=== PATIENT | female | born 1950 | race Caucasian/White ===

== ENCOUNTER → 2025-04-21 11:18 | Outpatient (REF) | payer MEDICARE, SELFPAY ==
--- NOTE | 2025-04-21 11:18 | S_PTH ---
PATIENT: Marian Acosta LOC: [facility] U#:[id number] AGE/SX: 75/F ROOM: RE04/21/[address]: Rainer Torres MD : [id number] BED: DIS: SPEC #: [id number] RECD: 04/21/25 12:42 STATUS: BROOKS RENoe #: [id number] MARIA: 04/21/25 11:[address]: Rainer Torres DEPT: [facility] Surgical RECD BY: Phillip Philip ENTERED: 04/21/25 12:43 SP TYPE: Surgical OTHR DR: Hugo SalazarMD Tissues: A - Nevus B - Nevus Procedures: Hematoxylin and Eosin Stain Gross and Microscopic Level 4
--- OUTSIDE RECORDS SUMMARY | 2025-04-21 12:04 | XMS_ITS | Encounter Summary ---
Author Organization [facility] Address [address] [place] [address] Phone Care Team Providers Care Hand Counter Name Role Phone Hugo Salazar MD Primary Care Provider [phone] Shawn Stein DO Unavailable [phone] Severiano Cordero DPM Unavailable [phone] Jw Lira MD Unavailable [phone] Lio Tay MD Unavailable Marcos Correia MD Unavailable Katie Hair APRN, DERMATOLOGIST AND DERMATOPATHOLOGIST Unavailable [phone] Michelle Encarnacion MD Unavailable [phone] Jeronimo Cabral MD Unavailable [phone] Reason for Referral * Radiology Services (Routine) - Closed Specialty Diagnoses / Procedures Referred By Nicolás marcelo Referred To Contact Radiology Diagnoses Pre-op testing Procedures EKG 12 LEAD Lio Tay MD [address] [place] [address] Phone: tel: fax: Referral ID Status Reason Start Date Expiration Date Visits Re quested Visits Authorized [id number] Closed 04/29/2020 1 1 * Radiology Services (Routine) - Closed Specialty Diagnoses / Procedures Referred By Nicolás marcelo Referred To Contact Radiology Diagnoses Pre-op testing Procedures XR CHEST 2 VIEWS Lio Tay MD [address] [place] [address] Phone: tel: fax: Referral ID Status Reason Start Date Expiration Date Visits Re quested Visits Authorized [id number] Closed 04/29/2020 1 1 Encounter Details Date Type Department Care Team (Latest Contact Info) Description 04/29/2020 Transcribe Orders [facility] Preop/Pacu II [address] [place] [id number] Lio Tay MD [address] [place] [address] Pre-op testing (Primary Dx) Social History Tobacco Use Types Packs/Day Years Used Date Smoking Tobacco: Never Smokeless Tobacco: Never Alcohol Use Standard Drinks/Week Comments No 0 (1 standard drink = 0.6 oz pur e alcohol) PHQ-2 Answer Date Recorded PHQ-2 Score 0 04/02/2019 Sexually Active Control Partners Comments Never Comments No Sex and Gender Information Value Date Recorded Sex Assigned at Female 11/13/2023 3:38 PM CDT Legal Sex Female 9:49 PM CDT Gender Identity Female 11/13/2023 3:38 PM CDT Sexual Orientation Straight 11/13/2023 3: 38 PM CDT Occupation Industry Job Start Date Job End Date 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 No / Unsure 04/30/2020 11:31 AM CDT documented as of this encounter Plan of Treatment Upcoming Encounters Date Type Department Care Team (Late st Contact Info) Description 07/15/2025 9:00 AM MUSEUM EXHIBIT TECHNICIAN Office Visit [facility] - Primary Care - [address] [place] [id number] Hugo Salazar MD [address] [place] [address] 09/25/2025 10:00 AM MUSEUM EXHIBIT TECHNICIAN Office Visit [facility] - Pulmonology & Sleep Medicine [facility] [address] [place] [address] Marcos Correia MD [address] [place] [address] documented as of this encounter Results * SARS-COV-2 BY PCR (05/09/2020 12:52 PM CDT) SARSCOV2 NOT DETECTED (Referenc e Range for this test is Not Detected) [facility] THERMOF[facility] FAST DX 05/10/2020 9:16 PM CDT [facility] NASOPHARYNGEAL STRUCTURE / Unknown Non-Phlebotomy Collection / Unknown 05/09/2020 12:52 PM CDT 05/09/2020 12:52 PM CDT Narrative [facility] - 05/10/2020 9:16 PM CDT Authorized Fact Sheets about this test for providers and patients are available at: https://www.fda.gov/medical-devices/vnwdqpyjd-iekcqdppqx-qeiaudt-devices/emergen cy-us e-authorizations us Lio Tay MD MICROBIOLOGY - GENERAL ORDERABLE S Final Result [facility] [address] [place] [address], [place] * XR CHEST 2 VIEWS (05/03/2020 8:37 AM CDT) Anatomical Region Laterality Modality Chest N/A Digital Radiogra phy 05/03/2020 10:4 1 AM CDT Impressions 05/03/2020 10:43 AM CDT IMPRESSION: No acute cardiopulmonary abnormality. Narrative 05/03/2020 10:43 AM CDT EXAM DESCRIPTION: XR CHEST 2 VIEWS REASON FOR STUDY: Hypertension TECHNIQUE: Frontal and lateral radiographic views of the chest acquired. COMPARISON: 05-24-18 FINDINGS: LUNGS/PLEURA: No focal consolidation or pneumothorax. No pleural effusion. HEART/MEDIASTINUM: Heart size is normal. Normal mediastinal and hilar contours. HARDWARE/LINES/TUBES: None. BONES: No acute findings. OTHER: No other significant finding. THIS IS AN ELECTRONICALLY VERIFIED FINAL REPORT 05/03/2020 10:41 AM - Electronically signed by Chu Clemens M.D. NC: NC Report ID: [id number] Reading Location: [place] [address] Procedure Note Chu Clemens MD - 05/03/2020 EXAM DESCRIPTION: XR CHEST 2 VIEWS REASON FOR STUDY: Hypertension TECHNIQUE: Frontal and lateral radiographic views of the chest acquired. COMPARISON: 05-24-18 FINDINGS: LUNGS/PLEURA: No focal consolidation or pneumothorax. No pleural effusion. HEART/MEDIASTINUM: Heart size is normal. Normal mediastinal and hilar contours. HARDWARE/LINES/TUBES: None. BONES: No acute findings. OTHER: No other significant finding. THIS IS AN ELECTRONICALLY VERIFIED FINAL REPORT 05/03/2020 10:41 AM - Electronically signed by Chu Clemens M.D. NC: NC Report ID: [id number] Reading Location: [place] [address] IMPRESSION: No acute cardiopulmonary abnormality. Lio Tay MD IMG DIAGNOSTIC ORDERABLES Final Result * EKG 12 LEAD (05/03/2020 8:18 AM CDT) Ventricular Rate BPM EXTERNAL EKG Atrial Rate BPM EXTERNAL EKG P-R Interval 166 ms EXTERNAL EKG QRS Duration 96 ms EXTERNAL EKG Q-T Duration 398 ms EXTERNAL EKG QTC CALCULATION 408 ms EXTERNAL EKG P [place] 80 degrees EXTERNAL EKG R [place] -6 degrees EXTERNAL EKG T [place] 60 degrees EXTERNAL EKG 05/03/2020 8:18 AM CDT Impressions EXTERNAL EKG - 05/03/2020 10:38 AM CDT Sinus rhythm rSr'(V1) - probable normal variant Poor R wave progression Comparison Summary: Significant changes Summary: Abnormal ECG Compared with:11/25/2015 9:24 AM; 08/26/2015 6:20 PM; 08/16/2015 9:03 AM Sinus rhythm resumed Confirmed by Blaire Hernandez [id number] on 05/03/2020 10:38:35 AM Narrative Procedure Note Ayse Rudd MD - 05/03/2020 IMPRESSION: Sinus rhythm rSr'(V1) - probable normal variant Poor R wave progression Comparison Summary: Significant changes Summary: Abnormal ECG Compared with:11/25/2015 9:24 AM; 08/26/2015 6:20 PM; 08/16/2015 9:03 AM Sinus rhythm resumed Confirmed by Blaire Hernandez [id number] on 05/03/2020 10:38:35 AM Lio Tay MD IMG ECG ORDERABLES Final Result EXTERNAL EKG * TYPE AND SCREEN(REPEAT) (05/03/2020 8:08 AM CDT) Pathologist [facility] ABO TYPING A 05/03/2020 11:22 AM CDT [facility] BLOOD BANK RH Positive 05/03/2020 11:22 AM CDT [facility] BLOOD BANK ABSC Negative 05/03/2020 11:22 AM CDT [facility] BLOOD BANK Blood Venipuncture / Unknown 05/03/2020 8:08 AM CDT 05/03/2020 8:36 AM CDT Lio Tay MD BLOOD BANK ORDERABLES Edited Res ult - Final [facility] BLOOD BANK [address] [facility] [place] [address] * URIC ACID (BLOOD ASSAY) (05/03/2020 8:08 AM CDT) URIC ACID 5.6 2.4 - 5.7 mg/dL 05/03/2020 9:28 AM CDT [facility] Blood Venipuncture / Unknown 05/03/2020 8:08 AM CDT 05/03/2020 8:37 AM CDT us Lio Tay MD CHEMISTRY ORDERABLES Final Resul t [facility] [address] [place] [address] * ANTINUCLEAR ANTIBODY (MARYCRUZ), TITER IF POS (05/03/2020 8:08 AM CDT) MARYCRUZ SCREEN Negative Negative titer 05/04/2020 11:35 AM CDT [facility] Comment: Antinuclear autoantibodies not detected by IFA at a 1:80 screening dilution of HEp-2 cells. Blood Venipuncture / Unknown 05/03/2020 8:08 AM CDT 05/03/2020 8:37 AM CDT us Lio Tay MD IMMUNOLOGY ORDERABLES Final Resu lt Performing Organization Address City/[facility]/ZIP Co de Phone Number [facility] [address] [place] [address], * RHEUMATOID FACTOR (RFQT) QUANT (05/03/2020 8:08 AM CDT) RHEUMATOID FACTOR QT <=10 <14 IU/mL 05/03/2020 9:29 AM CDT [facility] Blood Venipuncture / Unknown 05/03/2020 8:08 AM CDT 05/03/2020 8:37 AM CDT Narrative [facility] - 05/03/2020 9:29 AM CDT RHEUMATOID FACTORS CAN BE FOUND IN RHEUMATOID ARTHRITIS, SYPHILIS, VIRAL INFECTIONS, LEPROSY, CHRONIC LIVER DISEASE, NEOPLASMS, AND OTHER INFLAMMATORY CONDITIONS. RF PREVALENCE ALSO INCREASES WITH AGE. THUS A POSITIVE TEST IS NOT RESTRICTED TO RA. CONVERSELY, A NEGATIVE TEST DOES NOT RULE OUT RA, RHEUMATOID FACTORS ARE NOT DETECTABLE IN 10% OF ADULTS WITH THE DISEASE. us Lio Tay MD CHEMISTRY ORDERABLES Final Resul t Performing Organization Address City/[facility] Co de Phone Number [facility] [address] [place] [address] * (ABNORMAL) C-REACTIVE PROTEIN (CRP) QUANT (05/03/2020 8:08 AM CDT) C-REACTIVE PROTEIN 0.58(H) <0.50 mg/dL 05/03/2020 9:29 AM CDT [facility] Blood Venipuncture / Unknown 05/03/2020 8:08 AM CDT 05/03/2020 8:37 AM CDT us Lio Tay MD CHEMISTRY ORDERABLES Final Resul t Performing Organization Address [facility] de Phone Number [facility] [address] [place] [address] * ERYTHROCYTE SEDIMENTATION RATE (ESR) (05/03/2020 8:08 AM CDT) ESR (SED RATE, ERYTHROCYTE SEDIMENTATION RATE) 7 <30 mm/h 05/03/2020 8:58 AM CDT [facility] Comment:Patients presenting with abnormally high or low RBC counts and other hemoglobinopathies could affect the results for the erythrocyte sedimentation rate (ESR). Results should be clinically correlated. Blood Venipuncture / Unknown 05/03/2020 8:08 AM CDT 05/03/2020 8:37 AM CDT Lio Tay MD HEMATOLOGY ORDERABLES Final Resu lt Performing Organization Address [facility] Co de Phone Number [facility] [address] [place] [address] * (ABNORMAL) CMP (COMPREHENSIVE METABOLIC PANEL) (05/03/2020 8:08 AM CDT) SODIUM 140 136 - 144 mmol/L 05/03/2020 9:29 AM CDT [facility] POTASSIUM 4.3 3.5 - 5.1 mmol/L 05/03/2020 9:29 AM CDT [facility] CHLORIDE 102 100 - 110 mmol/L 05/03/2020 9:29 AM T [facility] CO2, VENOUS 29 22 - 32 mmol/L 05/03/2020 9:29 AM CDT [facility] ANION GAP 13.3 8.0 - 20.0 mmol/L 05/03/2020 9:29 AM CDT [facility] GLUCOSE 111(H) 70 - 99 mg/dL 05/03/2020 9:29 AM CDT [facility] BUN 18 8 - 23 mg/dL 05/03/2020 9:29 AM [facility] CREATININE, BLOOD 0.93 0.60 - 1.10 mg/dL 05/03/2020 9:29 AM [facility] BUN/CREATININE RATIO 19 12 - 20 ratio 05/03/2020 9:29 AM CDT [facility] TOTAL PROTEIN 7.1 6.0 - 8.3 g/dL 05/03/2020 9:29 AM [facility] ALBUMIN 4.4 3.5 - 5.2 g/dL 05/03/2020 9:29 AM [facility] Comment: The colormetric methods used for the determination of Albumin may lead to falsely elevated test results in patients suffering from renal failure or insufficiency due to interference with other proteins. A/G RATIO 1.6 1.0 - 2.0 05/03/2020 9:29 AM CDT [facility] CALCIUM 9.7 8.9 - 10.3 mg/dL 05/03/2020 9:29 AM CDT [facility] T BILI 0.3 <=1.2 mg/dL 05/03/2020 9:29 AM CDT [facility] SGOT (AST) 16 <=32 U/L 05/03/2020 9:29 AM T [facility] SGPT (ALT) 11 <=33 U/L 05/03/2020 9:29 AM CDT [facility] ALKALINE PHOSPHATASE 98 35 - 105 U/L 05/03/2020 9:29 AM CDT [facility] GFR, EST. NONAFRICAN 60 >=60 05/03/2020 9:29 AM CDT [facility] GFR, EST. >60 >=60 020 9:29 AM CDT [facility] Comment: Creatinine Clearance is the preferred criteria for selecting drug dose adjustments in renally impaired patients. The GFR is provided as additional pertinent clinical information. GFR is reported in mL/min/1.73 sq m. Blood Venipuncture / Unknown 05/03/2020 8:08 AM CDT 05/03/2020 8:37 AM CDT us Lio Tay MD CHEMISTRY ORDERABLES Final Resul t [facility] [address] [place] [address] documented in this encounter Visit Diagnoses Diagnosis Pre-op testing- Primary Preoperative examination, unspecified Pre-op testing Preoperative examination, unspecified Pre-op testing Preoperative examination, unspecified documented in this encounter Additional Health Concerns Assessment Noted Time PHQ-9 Depression Total Score: 0 10/18/19 19 9:00 AM CDT documented as of this encounter Care Teams Hand Counter Relationship Specialty Start Date End Date Hugo Salazar MD [address] [place] [address] PCP - General Internal Medicine 04/11/15 Shawn Stein DO [address] [place] [address] Gastroenterology 10/06/15 12/16/23 Severiano Cordero DPM [address] [place] [address] Consulting Physician Podiatry 07/05/16 Jw Lira MD [address] [place] [address] Consulting Physician Urology 02/25/18 12/16/23 Lio Tay MD [address] [place] [id number] Consulting Physician Orthopaedic Sports Medicine 08/27/19 Marcos Correia MD [address] [place] [id number] Consulting Physician Pulmonary Disease 10/19/21 Katie Hair APRN, DERMATOLOGIST AND DERMATOPATHOLOGIST [address] [facility] [address] [place] [address] Nurse Practitioner Cardiology 10/29/23 02/03/25 Michelle Encarnacion MD [address] [facility] [address] [place] [address] Consulting Physician Dermatology 12/17/23 Jeronimo Cabral MD [address] [place] [address] Consulting Physician Medical Oncology 11/06/23 documented as of this encounter
--- OUTSIDE RECORDS SUMMARY | 2025-04-21 12:04 | XMS_ITS | Clinical Summary ---
Author Organization [facility] Address [address] [address] Phone Care Team Providers Care Tool Straightener Name Role Phone Hugo Salazar MD Primary Care Provider [phone] Severiano Cordero DPM Unavailable [phone] Lio Tay MD Unavailable Marcos Correia MD Unavailable Michelle Encarnacion MD Unavailable [phone] Jeronimo Cabral MD Unavailable [phone] Allergies Active Allergy Reactions Criticality Noted Date Comments Ciprofloxacin Nausea 07/24/2017 Medications cyclobenzaprine (FLEXERIL) 5 MG Tablet Take 5 mg by mouth 3 times daily as needed for Muscle spasms. Active Cholecalciferol (VITAMIN D3) 2000 UNIT Capsule take 1 capsule by oral route 2 times every day 7 Active saccharomyces boulardii (FLORASTOR) 250 MG Capsule Take 250 mg by mouth 2 times daily. Active meloxicam (MOBIC) 15 MG Tablet TAKE 1 TABLET BY MOUTH TWICE DAILY WITH FOOD 2 Active fluticasone (FLONASE) 50 MCG/ACT SuspensionIndicatio ns:Perennial allergic rhinitis 1-2 Sprays by Nasal route daily. Use in each nostril as directed. 18.2 mL 1 2 Active Vuity 1.25 % Solution INSTILL 1 DROP INTO BOTH EYES EVERY DAY 2 Active lansoprazole (PREVACID) 30 MG CAPSULE DELAYED RELEASE TAKE 1 CAPSULE BY MOUTH DAILY 90 Capsule 3 5 Active FLUoxetine (PROzac) 20 MG CapsuleIndications: Anxiety and depression Take 1 Capsule by mouth daily. 90 Capsule 1 5 Active losartan (COZAAR) 25 MG Tablet TAKE 1 TABLET BY MOUTH DAILY 90 Tablet 1 5 Active rosuvastatin (CRESTOR) 20 MG TabletIndications:M ixed hyperlipidemia TAKE 1 TABLET BY MOUTH DAILY 90 Tablet 1 5 Active dilTIAZem (CARDIZEM CD) 240 MG CAPSULE SR 24 HRIndications:Hyper tension, essential,SVT (supraventricular tachycardia) TAKE 1 CAPSULE BY MOUTH DAILY 90 Capsule 5 Active Active Problems Problem Noted Date Diagnosed Date Benign paroxysmal positional vertigo 01/17/2024 Bilateral tinnitus 01/17/2024 Sensorineural hearing loss 01/17/2024 Chronic cough 11/03/2022 Gastroesophageal reflux disease without esophagi tis 11/01/2020 Non morbid obesity 09/18/2019 ARISTEO on CPAP 07/16/2018 Lumbar spinal stenosis 06/09/2016 Varicose veins 10/13/2015 Iron deficiency 09/08/2015 SVT (supraventricular tachycardia) 09/06/2015 Irritable bowel syndrome with diarrhea Mixed hyperlipidemia Anxiety and depression Hypertension, essential Resolved Problems Problem Noted Date Diagnosed Date Resolved Date Basal cell carcinoma, face 11/06/2023 0 12/30/2024 Skin lesion of scalp 11/06/2023 024 SVT (supraventricular tachycardia) 10/19/2023 12/17/2023 Primary osteoarthritis of left knee 05/11/2021 12/30/2024 Primary osteoarthritis of right knee 05/12/2020 12/30/2024 Bunion of great toe of left foot 06/14/2016 02/05/2017 Hammer toe of second toe of left foot 06/14/2016 02/05/2017 Tear of left rotator cuff 12/08/2015 Anemia 09/08/2015 02/05/2017 Leukocytosis 09/08/2015 02/05/2017 Sepsis due to other etiology (<HCC>) 09/06/2015 02/05/2017 Nausea & vomiting 09/06/2015 02/05/2017 Diarrhea 09/06/2015 02/05/2017 Encounters Date Type Department Care Team Description 03/27/2025 10:45 AM CDT Office Visit [facility] - Pulmonology & Sleep Medicine - [place] [address] [place] [address] Marcos Correia MD ARISTEO on CPAP (Primary Dx); Hypertension, essential; Non morbid obesity Discharge Disposition: Discharged to home or Selfcare 03/27/2025 Travel 02/26/2025 Refill [facility] - Primary Care - [place] [address] [place] [phone] Hugo Salazar MD Medication Refill 02/10/2025 Refill [facility] - Internal Medicine - [place] [address] [place] [phone] Hugo Salazar MD Medication Refill 02/03/2025 Refill [facility] - [place] [address] [place] [phone] Hugo Salazar MD Medication Refill from Last 3 Months Immunizations Immunization Administration Dates Next Due COVID-19, MRNA, LNP-S, BIVAL ENT , PFIZER, 30 MCG/0.3 ML (12+ Y/O) 06/13/2022 Covid-19, Mrna, Lnp-s, Pf, 3 0 Mcg/0.3 Ml Dose (Pfizer) 10/23/2020,09/30/2020 Covid-19, Mrna, Lnp-s, Pf, Temo-sucrose, 30 Mcg/0.3 Ml (Pfizer) 07/01/2024,06/14/2023 Influenza Vaccine greater than 3 yrs 04/29/2020, 05/30/2013 Influenza Vaccine, Quadrivalent, PF 04/30,04/28/2019,05/17/2018,06/05 Influenza, High-dose, Quadrivalent 05/27/2022 Influenza, Quadrivalent, Adjuvanted 06/14/2023 Influenza, Trivalent, Adjuvanted, PF 07/01/2024 PUR FLU 3+ YRS PRES FREE QUAD IM 07/05/2015 07/05/2016 PUR FLU HIGH DOSE (FLUZONE) 07/05/2016 PUR PCV-13 07/05/2016 Pneumococcal Vaccine Adult - 23 Valent 08/23/2017 TDAP Vaccine 04/10/2021,05/02/2010 Zoster Vaccine Recombinant 02/06/2022,11/29/2021 Zoster Vaccine, live 12/11/2012 Family History Medical History Relation Name Comments Heart Disease Brother Alzheimer's Disease Father Cancer Father lymph node Heart Disease Father Hypertension Father Prostate Cancer Father Breast Cancer Maternal Grandmother Diabetes Maternal Grandmother Breast Cancer Mother Heart Disease Mother Hypertension Mother Stroke Mother Relation Name Status Comments Brother Alive Father Alive Maternal Grandmother Mother Social History Tobacco Use Types Packs/Day Years Used Date Smoking Tobacco: Never Smokeless Tobacco: Never Tobacco Cessation:Counseling Given: Not Answered Alcohol Use Standard Drinks/Week Comments Yes 0 (1 standard drink = 0.6 oz pur e alcohol) ocassionally Authoreaities Answer Date Recorded In the past 12 months has [employer] electric, gas, oil, or water [employer] threatened to shut off services in your home? No 12/10/2023 Social Connection and Isolation Panel Answer Date Recorded In a typical week, how many times do you talk on the phone with family, friends, or neighbors? Patient declined 12/10/2023 How often do you get togethe r with friends or relatives? Patient declined 12/10/2023 How often do you attend judaism or rastafarian serv ices? Patient declined 12/10/2023 Do you belong to any clubs o r organizations such as judaism groups, unions, fraternal or athletic groups, or school groups? Patient declined 12/10/2023 How often do you attend meet ings of the clubs or organizations you belong to? Patient declined 12/10/2023 Are you , , di vorced, , never , or living with a partner? Patient declined 12/10/2023 AUDIT-C Answer Date Recorded Q1: How often do you have a drink containing alc ohol? Patient declined 12/10/2023 Q2: How many drinks containi ng alcohol do you have on a typical day when you are drinking? Patient declined 12/10/2023 Q3: How often do you have si x or more drinks on one occasion? Patient declined 12/10/2023 Overall Financial Resource Strain (CARDIA) Answe r Date Recorded How hard is it for you to pa y for the very basics like food, housing, medical care, and heating? Patient declined 12/10/2023 PHQ-2 Answer Date Recorded Total Score - Questions 1-9 0 /0 [facility] - Occupational Stress Questionnaire Answer Date Recorded Do you feel stress - tense, restless, nervous, or anxious, or unable to sleep at night because your mind is troubled all the time - these days? Patient declined 12/10/2023 Exercise Vital Sign Answer Date Recorde d On average, how many days pe r week do you engage in moderate to strenuous exercise (like a brisk walk)? Patient declined On average, how many minutes do you engage in exercise at this level? Patient declined 12/10/2023 Hunger Vital Sign Answer Date Recorded Within the past 12 months, y ou worried that your food would run out before you got the money to buy more. Patient declined Within the past 12 months, t he food you bought just didn't last and you didn't have money to get more. Patient declined PRAPARE - Transportation Answer Date Re corded In the past 12 months, has l ack of transportation kept you from medical appointments or from getting medications? Patient declined 12/10/2023 In the past 12 months, has l ack of transportation kept you from meetings, work, or from getting things needed for daily living? Patient declined 12/10/2023 Housing Stability Vital Sign Answer Bj e Recorded In the last 12 months, was t here a time when you were not able to pay the mortgage or rent on time? Patient declined 12/10/19 24 In the last 12 months, how many places have you lived? 1 12/10/2023 In the last 12 months, was t here a time when you did not have a steady place to sleep or slept in a usp (including now)? Patient declined 12/10/2023 Education Answer Date Recorded What is the highest level of school you have completed or the highest degree you have received? 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 on file Not on file Not o n file Last Filed Vital Signs Vital Sign Reading Time Taken Comments Blood Pressure 142/68 03/27/2025 10:42 AM CDT Pulse 63 03/27/2025 10:42 AM CDT Temperature 36.8 C (98.2 F) 03/27/2025 10:42 AM CDT Respiratory Rate 16 03/27/2025 10:42 AM CDT Oxygen Saturation 97% 03/27/2025 10:42 AM CDT Inhaled Oxygen Concentration - - Weight 79.4 kg (175 lb) 03/27/2025 10:42 AM CDT Height 154.9 cm (5' 1) 03/27/2025 10:42 AM CDT Body Mass Index 33.07 03/27/2025 10:42 AM CDT Plan of Treatment Upcoming Encounters Date Type Department Care Team (Late st Contact Info) Description 07/15/2025 9:00 AM RN CORONARY CARE UNIT Office Visit [facility] - Primary Care - [place] [address] [place] [address] Hugo Salazar MD [address] [place] [address] 09/25/2025 10:00 AM RN CORONARY CARE UNIT Office Visit [facility] - Pulmonology & Sleep Medicine [facility] [address] [place] [phone] Marcos Correia MD [address] [place] [address] Health Maintenance Due Date Last Done Comments Cologuard 1996 Immunochemical Fecal Occult Blood 1996 Respiratory Syncytial Virus (RSV) Immunization (Adult) (1 - Risk 60-74 years 1-dose series) 2011 Mammogram 03/28/2024 03/28/2023, 11/27, 06/24/2019, Additional history exists Influenza Immunization (#1) 2025 12/0 09/2023, 06/14/2023, 05/27/2022, Additional history exists SARS-COV-2 Immunization ( season) 2025 07/01/2024, 06/14/2023, 06/13/2022, Additional history exists Colonoscopy 09/09/2025 09/09/2015, 06/23/2008 Colorectal Cancer Screening 09/09/2025 Td Immunization Every 10 Years (Adults With 1 Tdap) 04/10/2031 04/10/2021, 05/02/2010 Pneumococcal Immunization (50+ years) Completed 08/23/2017, 07/05/2016 Pneumococcal Immunization Combined Discontinued 08/23/2017, 07/05/2016 DEXA Bone Density Discontinued 11/16/2021, 04/19/2016 Zoster Immunization Completed 02/06/2022, 11/29/2021, 12/11/2012 Hepatitis C Virus (HCV) Screening Completed 12/17/2023 Hepatitis B Immunization Aged Out No longer eligible based on patient's age to complete this topic Human Papillomavirus (HPV) Immunization Aged Out No longer eligible based on patient's age to complete this topic Meningococcal Immunization (ACWY) Aged Out No longer eligible based on patient's age to complete this topic Rotavirus Immunization Aged Out No lo nger eligible based on patient's age to complete this topic Medical Devices Implanted Type Area Correctional Supervising Cook Device Identifier Shelf Expiration Date Model / Serial / Lot Cement Bone Orthoset 1 40gm - [id number] Implanted:Qty : 1 on 05/12/2020 by Lio Tay MD at [facility] IMPLANT Right: Knee [employer] 10/27/2021 [id number] / [id number] / [id number] Cement Bone Orthoset 1 40gm - [id number] Implanted:Qty : 1 on 05/12/2020 by Lio Tay MD at [facility] IMPLANT Right: Knee [employer] 10/27/2021 [id number] / [id number] / [id number] Component Patellar Low Dome 7mm 25mm Recessed Advance All Poly - [id number] Implanted:Qty : 1 on 05/12/2020 by Lio Tay MD at [facility] IMPLANT Right: Knee [employer] 09/02/2027 [id number] / [id number] / [id number] Insert Evolution Mp Tib Keeled Nonpor Size 4 Standard Right - [id number] Implanted:Qty : 1 on 05/12/2020 by Lio Tay MD at [facility] IMPLANT Right: Knee [employer] 12/16/2027 [id number] / [id number] / [id number] Insert Evolution Mp Fem Cs/Cr Porous - [id number] Implanted:Qty : 1 on 05/12/2020 by Lio Tay MD at [facility] IMPLANT Right: Knee [employer] 10/01/2027 [id number] / [id number] / [id number] Insert Evolution Mp Cs Size 4 Plus 10mm Right - [id number] Implanted:Qty : 1 on 05/12/2020 by Lio Tay MD at [facility] IMPLANT Right: Knee [employer] 02/18/2026 [id number] / [id number] / [id number] Insert Evolution Mp Fem Cs/Cr Porous - [id number] Implanted:Qty : 1 on 05/11/2021 by Lio Tay MD at [facility] IMPLANT Left: Knee [employer] 09/20/2026 [id number] / [id number] / [id number] Component Patellar Low Dome 7mm 25mm Recessed Advance All Poly - [id number] Implanted:Qty : 1 on 05/11/2021 by Lio Tay MD at [facility] IMPLANT Left: Knee [employer] 09/12/2027 [id number] / [id number] / [id number] Cement Bone Orthoset 1 40gm - [id number] Implanted:Qty : 1 on 05/11/2021 by Lio Tay MD at [facility] IMPLANT Left: Knee [employer] 02/26/2023 [id number] / [id number] / [id number] Cement Bone Orthoset 1 40gm - [id number] Implanted:Qty : 1 on 05/11/2021 by Lio Tay MD at [facility] IMPLANT Left: Knee [employer] 02/26/2023 [id number] / [id number] / [id number] Insert Evolution Mp Tib Keeled Nonpor Size 4 Standard Left - [id number] Implanted:Qty : 1 on 05/11/2021 by Lio Tay MD at [facility] IMPLANT Left: Knee [employer] 12/21/2028 [id number] / [id number] / [id number] Ethi-Pack Precut Suture Steel Implanted:Qty : 1 on 06/14/2016 by Severiano Cordero DPM at [facility] Left: Foot [id number]-28 / / [id number]-28 [employer] Evolution Mp Cs Insert Implanted:Qty : 1 on 05/11/2021 by Lio Tay MD at [facility] Left: Knee [employer] 09/27/2023 [id number] / [id number] / [id number] Procedures Procedure Name Priority Date/Time Associated Diagnosis Comments HEPATITIS C ANTIBODY Routine 12/17/2023 9:26 AM CDT Encounter for hepatitis C screening test for low risk patient BRITTANI SCREENING BILATERAL DIGITAL W CAD W FARRAH Routine 03/28/2023 9:46 AM CDT Visit for screening mammogram BONE DENSITY GENERIC 11/16/2021 12:00 AM CDT HM COLONOSCOPY Routine 06/23/2008 from Last 3 Months or Most Recently Relevant to Health Maintenance Results * HEPATITIS C ANTIBODY (12/17/2023 9:26 AM CDT) hepatitis C antibody 0.07 <1 S/CO 12/17/2023 9:49 PM CDT [facility] Comment: Signal/Cutoff ratio < 0.79 is Nondetected Signal/Cutoff ratio 0.80-0.99 is Grayzone Signal/Cutoff ratio > 0.99 is Detected Supplemental assays are recommended if signal/cutoff ratio is >/=1.00. Signal/cutoff ratio result >/= 5.00 is 97% predictive of positivity for recombinant immunoblot assay (RIBA) and will be reported to the [place] Department of Public Health as required. Blood Venipuncture / Unknown 12/17/2023 9:26 AM CDT 12/17/2023 9:26 AM CDT us Hugo Salazar MD CHEMISTRY ORDERABLES Alexandrea rivas Result [facility] [address] [place] [address], [place] * BRITTANI SCREENING BILATERAL DIGITAL W CAD W FARRAH (03/28/2023 9:46 AM CDT) Anatomical Region Laterality Modality breast Bilateral Mammography 03/28/2023 9:23 AM CDT Narrative 03/28/2023 4:04 PM CDT - BRITTANI SCREENING BILATERAL DIGITAL W CAD W FARRAH BILATERAL DIGITAL SCREENING MAMMOGRAM 3D/2D WITH CAD WITH MEDIOLATERAL OBLIQUE CRANIOCAUDAL: 03/28/2023 The study was acquired using digital technology and interpreted from soft copy. Current study was also evaluated with ICAD version 7.2. 2D digital mammographic views, as well as 3D digital tomosynthesis were performed in the CC and MLO projections. CLINICAL: Routine screening. Patient has no complaints. Personal history of basal cell carcinoma 2022. Mother and maternal grandmother with breast cancer. COMPARISONS: Comparison is made to exams dated: 12/14/2021, 06/24/2019, and 05/27/2018 [facility]. BREAST TISSUE:The tissue of both breasts is heterogeneously dense. This may lower the sensitivity of mammography. FINDINGS: There are benign calcifications in both breasts. No significant masses, calcifications, or other findings are seen in either breast. There has been no significant interval change. IMPRESSION: BI-RAD 2 BENIGN There is no mammographic evidence of malignancy. A 1 year screening mammogram is recommended. A letter will be sent to the patient with these results. The patient will be entered into a reminder system with a target due date of 1 year for her next screening exam. Electronically signed by: Gustavo llanes/penrad:03/28/2023 15:54:48 Internet Salesperson(s): RT Fawad(R)(M), [facility] letter sent: Normal Exam Reading location: [place] BI-RADS: 2 Benign Procedure Note Gustavo Fajardo MD - 03/28/2023 - BRITTANI SCREENING BILATERAL DIGITAL W CAD W FARRAH BILATERAL DIGITAL SCREENING MAMMOGRAM 3D/2D WITH CAD WITH MEDIOLATERAL OBLIQUE CRANIOCAUDAL: 03/28/2023 The study was acquired using digital technology and interpreted from soft copy. Current study was also evaluated with ICAD version 7.2. 2D digital mammographic views, as well as 3D digital tomosynthesis were performed in the CC and MLO projections. CLINICAL: Routine screening. Patient has no complaints. Personal history of basal cell carcinoma 2022. Mother and maternal grandmother with breast cancer. COMPARISONS: Comparison is made to exams dated: 12/14/2021, 06/24/2019, and 05/27/2018 [facility]. BREAST TISSUE:The tissue of both breasts is heterogeneously dense. This may lower the sensitivity of mammography. FINDINGS: There are benign calcifications in both breasts. No significant masses, calcifications, or other findings are seen in either breast. There has been no significant interval change. IMPRESSION: BI-RAD 2 BENIGN There is no mammographic evidence of malignancy. A 1 year screening mammogram is recommended. A letter will be sent to the patient with these results. The patient will be entered into a reminder system with a target due date of 1 year for her next screening exam. Electronically signed by: Gustavo llanes/olga:03/28/2023 15:54:48 Internet Salesperson(s): RT Fawad(R)(M), [facility] letter sent: Normal Exam Reading location: [place] BI-RADS: 2 Benign us Hugo Salazar MD IMG MAMMO ORDERABLES Alexandrea rob Result * BONE DENSITY GENERIC SCAN (11/16/2021 12:00 AM CDT) 11/16/2021 us Not On File Provider IMG DEXA ORDERABLES Final R esult SCAN * COLONOSCOPY (06/23/2008) us Hugo Salazar MD PROCEDURE/MINOR SURGICAL ORDERABLES Edited Result - Final from Last 3 Months or Most Recently Relevant to Health Maintenance Insurance MEDICARE C [facility] Advance Directives Documents on File Type Date Recorded Patient Stadium Attendant Expl anation Advance Care Planning Discussion 05/27/2020 9:05 AM ACP DISCUSSION RECOR D 05/26/20 * Full Code (Latest Code Status on File) Date Activated Date Inactivated Comments 05/24/2021 1:08 PM 11/19/2023 1:57 PM * Full Code Date Activated Date Inactivated Comments 06/01/2020 12:42 PM 04/10/2021 3:46 PM * Full Code Date Activated Date Inactivated Comments 09/06/2015 4:31 PM 09/11/2015 9:28 PM Full Code: FULL ARREST: Attempt Resuscitation/CPR and use intubation and mechanical ventilation as indicated. PRE-ARREST: Use all measures to stabilize patient. Care Teams Tool Straightener Relationship Specialty Start Date End Date Hugo Salazar MD [address] [place] [address] PCP - General Internal Medicine 04/11/15 Severiano Cordero DPM [address] [place] [address] Consulting Physician Podiatry 07/05/16 Lio Tay MD [address] [place] [address] Consulting Physician Orthopaedic Sports Medicine 08/27/19 Marcos Correia MD [address] [place] [id number] Consulting Physician Pulmonary Disease 10/19/21 Michelle Encarnacion MD [address] [place] [address] Consulting Physician Dermatology 12/17/23 Jeronimo Cabral MD [address] [place] [address] Consulting Physician Medical Oncology 11/06/23
--- OUTSIDE RECORDS SUMMARY | 2025-04-21 12:04 | XMS_ITS | Encounter Summary ---
Author Organization [facility] Address [address] [place] [address] Phone Care Team Providers Care Casting Repairer Name Role Phone Hugo Salazar MD Primary Care Provider [phone] Shawn Stein DO Unavailable [phone] Severiano Cordero DPM Unavailable [phone] Jw Lira MD Unavailable [phone] Lio Tay MD Unavailable Marcos Correia MD Unavailable Katie Hair APRN, ORE DIGGER Unavailable + [phone] Michelle Encarnacion MD Unavailable [phone] Jeronimo Cabral MD Unavailable [phone] Reason for Visit * Reason Comments Medication Refill Encounter Details Date Type Department Care Team (Late st Contact Info) Description 05/16/2022 Refill [facility] - Primary Care - [place] [address] [place] [address] Hugo Salazar MD [address] [place] [address] Medication Refill Social History Tobacco Use Types Packs/Day Years Used Date Smoking Tobacco: Never Smokeless Tobacco: Never Alcohol Use Standard Drinks/Week Comments No 0 (1 standard drink = 0.6 oz pur e alcohol) PHQ-2 Answer Date Recorded PHQ-2 Score 0 04/02/2019 Education Answer Date Recorded What is the [...] Job Start Date Job End Date 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 No / Unsure 04/27/2022 1:24 PM CDT documented as of this encounter Miscellaneous Notes * Telephone Encounter - Concepción Blackwood RN - 05/16/2022 9:05 AM CDT Refill request too soon. documented in this encounter Plan of Treatment Upcoming Encounters Date Type Department Care Team (Late st Contact Info) Description 07/15/2025 9:00 AM PROTOTYPE FABRICATOR Office Visit [facility] - Primary Care - [place] [address] [place] [address] Hugo Salazar MD [address] [place], [place] [address] 09/25/2025 10:00 AM PROTOTYPE FABRICATOR Office Visit [facility] - Pulmonology & Sleep Medicine [facility] [address] [place] [address] Marcos Correia MD [address] [place] [id number] documented as of this encounter Visit Diagnoses Diagnosis Perennial allergic rhinitis Allergic rhinitis, cause unspecified documented in this encounter Additional Health Concerns Assessment Noted Time PHQ-9 Depression Total Score: 0 10/18/19 19 9:00 AM CDT documented as of this encounter Care Teams Casting Repairer Relationship Specialty Start Date End Date Hugo Salazar MD [address] [place] [address] PCP - General Internal Medicine 04/11/15 Shawn Stein DO [address] [place] [address] Gastroenterology 10/06/15 12/16/23 Severiano Cordero, DPM [address] [place] [address] Consulting Physician Podiatry 07/05/16 Jw Lira MD [address] [place] [address] Consulting Physician Urology 02/25/18 12/16/23 Lio Tay MD [facility] [place] [address] Consulting Physician Orthopaedic Sports Medicine 08/27/19 Marcos Correia MD [address] [place] [address] Consulting Physician Pulmonary Disease 10/19/21 Katie Hair, EGG GATHERER, ORE DIGGER #2 COUNTS INCLUDE [facility] AT [facility] ER[place]ao [address] [address] Nurse Practitioner Cardiology 10/29/23 02/03/25 Michelle Encarnacion MD [address] [facility] [address] [place] [address] Consulting Physician Dermatology 12/17/23 Jeronimo Cabral MD [address] [place] [address] Consulting Physician Medical Oncology 11/06/23 documented as of this encounter
--- OUTSIDE RECORDS SUMMARY | 2025-04-21 12:04 | XMS_ITS | Clinical Summary ---
Author Organization [facility] Address [address] [place] [address] Care Team Providers Care Education Program Associate Name Role Phone Hugo Salazar MD Primary Care Provider + Allergies No known active allergies Medications lansoprazole (PREVACID) 30 mg capsule take 1 capsule (30MG) by oral route every day before a meal 0 12/06/2012 Active Saccharomyces boulardii (FLORASTOR) 250 mg capsule take 2 capsule by oral route every day 0 0 10/31/2016 Active meloxicam (MOBIC) 7.5 mg tablet take 1 tablet by oral route 2 times every day 0 0 10/31/2016 Active cyclobenzaprine (FLEXERIL) 5 mg tablet take 1 tablet by oral route 3 times every day as needed 0 0 10/31/2016 Active cholecalciferol (VITAMIN D3) 2,000 unit capsule take 1 capsule by oral route 2 times every day 0 0 10/31/2016 Active diltiazem (TIAZAC) 240 mg 24 hr capsule take 1 capsule by oral route every day 0 0 10/31/2016 Active calcium carbonate-vitam in D3 (CALTRATE 600 + D) 600 mg (1,500 mg)-800 unit tablet,chewable take 1 tablet by oral route 2 times every day 0 0 10/31/2016 Active lovastatin (MEVACOR) 40 mg tablet take 2 tablet by oral route every day with the evening meal 0 0 10/31/2016 Active HYDROcodone-carissa taminophen (NORCO) 5-325 mg per tablet take 1 tablet by oral route every 12 hours as needed for pain 0 0 10/31/2016 Active Active Problems Problem Noted Date Diagnosed Date Depression 05/25/2017 Hyperlipidemia 05/25/2017 Hypertension, essential 05/25/2017 IBS (irritable bowel syndrome) 05/25/2017 Palpitations 05/25/2017 Assessment & Plan (05/25/2017 10:52 AM CDT): At present the patient does not have a diagnosis related to her palpitations and tachycardia. She is still responding well to diltiazem and it is recommended that she continue on this medication. In the past she is not interested an implantable loop recorder for diagnosis. We will continue to follow. She can follow up in 1 year for an office visit and 12 lead EKG. Lumbar spinal stenosis 06/09/2016 Varicose veins 10/13/2015 Iron deficiency 09/08/2015 SVT (supraventricular tachycardia) 09/06/2015 Surgical History Surgery Date Site/Laterality Comments HYSTERECTOMY Hysterectomy NOSE SURGERY nasal surgery Medical History Medical History Date Comments Hx Other Medical palpitations Hx Other Medical chest pain Family History Medical History Relation Name Comments Coronary artery disease Father 2 Leif nary Artery Bypass Graft; Relation Name Status Comments Father 1 Alive Father 2 Social History Tobacco Use Types Packs/Day Years Used Date Smoking Tobacco: Never Assessed Alcohol Use Standard Drinks/Week Comments No 0 (1 standard drink = 0.6 oz pur e alcohol) Comments Unknown Sex and Gender Information Value Date Recorded Sex Assigned at Not on file Legal Sex Female 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 SORTER Gender Identity Not on file Sexual Orientation Not on file Obstetrics History Last Filed Vital Signs Vital Sign Reading Time Taken Comments Blood Pressure 146/72 05/25/2017 10:34 AM CDT Pulse 70 05/25/2017 10:34 AM CDT Temperature - - Respiratory Rate - - Oxygen Saturation - - Inhaled Oxygen Concentration - - Weight 70.8 kg (156 lb) 05/25/2017 10:34 AM CDT Height 154.9 cm (5' 1) 05/25/2017 10:34 AM CDT Body Mass Index 29.48 05/25/2017 10:34 AM CDT Plan of Treatment Not on file [facility] Care Teams Education Program Associate Relationship Specialty Start Date End Date Hugo Salazar MD PCP - General 10/27/16
--- OUTSIDE RECORDS SUMMARY | 2025-04-21 12:04 | XMS_ITS | Encounter Summary ---
Author Organization [facility] Address [address] [address] Care Team Providers Care Directory Compiler Name Role Phone Hugo Salazar MD Primary Care Provider + Encounter Details Date Type Department Care Team (Late st Contact Info) Description 10/31/2016 Orders Only [facility] ProviderJulia MD [address] [place] [address] Social History Tobacco Use Types Packs/Day Years Used Date Smoking Tobacco: Never Assessed Alcohol Use Standard Drinks/Week Comments No 0 (1 standard drink = 0.6 oz pur e alcohol) Comments Unknown Sex and Gender Information Value Date Recorded Sex Assigned at Not on file Legal 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 Historical Provider [facility] Final Result documented in this encounter Visit Diagnoses Not on filedocumented in this encounter Care Teams Directory Compiler Relationship Specialty Start Date End Date Hugo Salazar MD PCP - General 10/27/16 documented as of this encounter
--- OUTSIDE RECORDS SUMMARY | 2025-04-21 12:04 | XMS_ITS | Encounter Summary ---
Author Organization [facility] Address [address] [place] [address] Phone Care Team Providers Care Water Proofer Name Role Phone Hugo Salazar MD Primary Care Provider [phone] Shawn Stein DO Unavailable [phone] Sveeriano Cordero DPM Unavailable [phone] Jw Lira MD Unavailable Lio Tay MD Unavailable Marcos Correia MD Unavailable Katie Hair APRN, PAUNCH TRIMMER Unavailable + [phone] Michelle Encarnacion MD Unavailable [phone] Jeronimo Cabral MD Unavailable [phone] Reason for Visit * Reason Comments Medication Refill Encounter Details Date Type Department Care Team (Late st Contact Info) Description 11/16/2022 Refill 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 No / Unsure 11/03/2022 10:44 AM CDT documented as of this encounter Miscellaneous Notes * Telephone Encounter - Concepción Blackwood RN - 11/16/2022 11:07 AM CDT Refill requested too soon. documented in this encounter Plan of Treatment Upcoming Encounters Date Type Department Care Team (Late st Contact Info) Description 07/15/2025 9:00 AM ON CAR SUPERVISOR Office Visit [facility] - Primary Care - [place] [address] [place] [address] Hugo Salazar MD [address] [place] [address] 09/25/2025 10:00 AM ON CAR SUPERVISOR Office Visit [facility] - Pulmonology & Sleep Medicine - [place] [address] [place] [phone] Marcos Correia MD [address] [place] [address] documented as of this encounter Visit Diagnoses Diagnosis Mixed hyperlipidemia documented in this encounter Additional Health Concerns Assessment Noted Time PHQ-9 Depression Total Score: 0 06/07/20 22 10:00 AM ON CAR SUPERVISOR documented as of this encounter Care Teams Water Proofer Relationship Specialty Start Date End Date Hugo Salazar MD [address] [place] [address] PCP - General Internal Medicine 04/11/15 Shawn Stein DO [address] [place] [address] Gastroenterology 10/06/15 12/16/23 Severiano Cordero DPM [address] [place] [address] Consulting Physician Podiatry 07/05/16 Jw Lira MD [facility] [place] [address] Consulting Physician Urology 02/25/18 12/16/23 Lio Tay MD [facility] [place] [address] Consulting Physician Orthopaedic Sports Medicine 08/27/19 Marcos Correia MD [address] [place] [address] Consulting Physician Pulmonary Disease 10/19/21 Katie Hair, GRINDER SET UP OPERATOR THREAD TOOL, PAUNCH TRIMMER [facility] [address] [address] Nurse Practitioner Cardiology 10/29/23 02/03/25 Michelle Encarnacion MD [address] [facility] [address] [place] [address] Consulting Physician Dermatology 12/17/23 Jeronimo Cabral MD [address] [place] [address] Consulting Physician Medical Oncology 11/06/23 documented as of this encounter
--- OUTSIDE RECORDS SUMMARY | 2025-04-21 12:04 | XMS_ITS | Encounter Summary ---
Author Organization [facility] Address [address] [address] Phone Care Team Providers Care Senior Integration Architect Name Role Phone Hugo Salazar MD Primary Care Provider Shawn Stein DO Unavailable [phone] Severiano Cordero DPM Unavailable [phone] Jw Lira MD Unavailable Lio Tay MD Unavailable Marcos Correia MD Unavailable Katie Hair APRN, FORENSIC PHOTOGRAPHER Unavailable + [phone] Michelle Encarnacion MD Unavailable [phone] Jeronimo Cabral MD Unavailable [phone] Encounter Details Date Type Department Care Team (Latest Contact Info) Description 05/03/2021 [facility] [address] [place] [address] Lio Tay MD [address] [place], [place] [id number] Pre-op testing (Primary Dx) Social History Tobacco [...] Job Start Date Job End Date 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 No / Unsure 05/06/2021 1:53 PM CDT documented as of this encounter Plan of Treatment Upcoming Encounters Date Type Department Care Team (Late st Contact Info) Description 07/15/2025 9:00 AM RUSSIAN LANGUAGE PROFESSOR Office Visit [facility] - Primary Care - [place] [address] [place] [address] Hugo Salazar MD [address] [place] [address] 09/25/2025 10:00 AM RUSSIAN LANGUAGE PROFESSOR Office Visit [facility] - Pulmonology & Sleep Medicine [facility] [address] [place] [address] Marcos Correia MD [address] [place] [address] documented as of this encounter Results * TYPE & SCREEN (CROSSMATCH CONVERTIBLE) (05/06/2021 2:17 PM CDT) ABO TYPING A 05/06/2021 4:36 PM CDT [facility]OD [facility] RH Positive 05/06/2021 4:36 PM CDT [facility] ABSC Negative 05/06/2021 4:36 PM CDT [facility] Blood Venipuncture / Unknown 05/06/2021 2:17 PM CDT 05/06/2021 3:34 PM CDT us Lio Tay MD BLOOD BANK ORDERABLES Edited Res ult - Final [facility]OD [facility] #[address] [place] [address] documented in this encounter Visit Diagnoses Diagnosis Pre-op testing- Primary Preoperative examination, unspecified documented in this encounter Additional Health Concerns Assessment Noted Time PHQ-9 Depression Total Score: 0 10/18/19 19 9:00 AM CDT documented as of this encounter Care Teams Senior Integration Architect Relationship Specialty Start Date End Date Hugo Salazar MD [address] [place] [address] PCP - General Internal Medicine 04/11/15 Shawn Stein DO [address] [place] [address] Gastroenterology 10/06/15 12/16/23 Severiano Cordero, DPM [address] [place] [address] Consulting Physician Podiatry 07/05/16 Jw Lira MD [address] [place] [address] Consulting Physician Urology 02/25/18 12/16/23 Lio Tay MD [address] [place] [address] Consulting Physician Orthopaedic Sports Medicine 08/27/19 Marcos Correia MD [address] [place] [address] Consulting Physician Pulmonary Disease 10/19/21 Katie Hair APRN, FORENSIC PHOTOGRAPHER [address] [place] [address] [place] [address] Nurse Practitioner Cardiology 10/29/23 02/03/25 Michelle Encarnacion MD [address] [facility] [address] [place] [address] Consulting Physician Dermatology 12/17/23 Jeronimo Cabral MD [address] [place] [address] Consulting Physician Medical Oncology 11/06/23 documented as of this encounter
== END ==
LOC: ANHLAB 11:18
PROVIDERS: PCP Internal Medicine; Visit Provider Plastic Surgery
DX: D22.9 Melanocytic nevi, unspecified (principal)
CPT/HCPCS: 88305